=== PATIENT | female | born 1955 | race Hispanic/Latino ===

== ENCOUNTER → 2017-03-24 | Day surgery (SDC) | payer OTHER ==
[~2017-03-24] VITALS: Ht 162.6 cm; Wt 83.5 kg
[~2017-03-24] MED LIST: COZAAR100 M1 PO; LEVOTHYROXINE125 MCG PO; rovastatin PO
--- NOTE | 2017-03-24 09:41 | Operative Report ---
Operative/Inv Procedure Report Surgery Date: 03/24/17 Name of Procedure: left ESWL Pre-Operative Diagnosis: left renal stone 6mm Post-Operative Diagnosis: same Estimated Blood Loss: scant Surgeon/Underwriting Support Manager: GERMÁN MILLER MD Anesthesia: local monitored anesthesi Complications: none Condition: stable Operative Indication: 6mm left renal stone Operative/Procedure Note Note: 62yo female with a hx of left renal stone and recent onset of recurrent UTis. Patient was given the risks, benefits and alternatives of the ESWL procedure. All questions were answered. Patient was taken to the operating room and placed on the operating room table in the supine position. She was given 2gm IV antibiotics after time out was performed. She was positioned optimally for the left ESWL. She was given a total of 25oo shocks. It was started at L1-12 for 250 shocks, followed by 250 at L13-17, L18 at 200shocks, L19 at 100 shocks and finally 1700 shocks at L20. She tolerated the procedure well. Findings: 6mm left renal stone Discharge Disposition: Same Day Admissions
== END ==
LOC: STS 03-21 07:00
DX: N20.0 Calculus of kidney (principal); Z87.442 Personal history of urinary calculi; Z87.440 Personal history of urinary (tract) infections; M10.9 Gout, unspecified; I10 Essential (primary) hypertension; E66.9 Obesity, unspecified; Z68.34 Body mass index [BMI] 34.0-34.9, adult; E03.9 Hypothyroidism, unspecified
CPT/HCPCS: 36415; 93005; 93010; J0690; J2250